=== PATIENT | female | born 1970 | race Caucasian/White ===

== ENCOUNTER → 2022-02-12 13:52 | Outpatient (CLI) | payer OTHER, SELFPAY ==
--- NOTE | ~2022-02-12 | MR_ITS ---
EXAMINATION: MR knee LT wo con DATE: 02/12/2022 14:40 INDICATION: Anterior left knee pain, difficulty bending knee since a fall off a ladder onto the knee, 2 weeks ago. TECHNIQUE: Magnetic resonance imaging (MRI) of the left knee was performed without intravenous contra st. Sequences included axial PD-weighted FS FSE, coronal PD-weighted FSE and PD-weighted FS FSE, sagi ttal PD-weighted FSE, and sagittal T2-weighted FS FSE. COMPARISON: None. FINDINGS: Medial compartment: Meniscus intact. Moderate diffuse cartilage thinning. Mild osteophytosis. Lateral compartment: Meniscus intact. Moderate diffuse cartilage thinning. Mild osteophytosis. Patellofemoral compartment: Full-thickness cartilage fissures along the medial facet, with mild subchondral edema. Retinacula int act. Ligaments and tendons: LCL, PCL, and MCL are intact. Remaining flexor and extensor tendons are intact. Fluid: Small volume joint fluid. Osseous/other: Irregular large focus of bone marrow edema involving the tibial tubercle and the anterior portion of the mid proximal tibia nonaggressive appearing 12 mm adjacent marrow cyst. IMPRESSION: 1. Bone marrow contusion involving the proximal tibia and tibial tuberosity. 2. Small volume knee joint effusion. 3. Osteoarthritic changes in the medial and lateral compartments. 4. No internal derangement. Reviewed, dictated and finalized at location K. ITALITY RECRUITER
== END ==
PROVIDERS: PCP Nurse Practitioner Family; Visit Provider Orthopaedic Surgery
DX: M25.462 Effusion, left knee (principal); M17.12 Unilateral primary osteoarthritis, left knee
CPT/HCPCS: 73721

== ENCOUNTER 2022-05-22 07:17 | Outpatient (CLI) | payer OTHER, SELFPAY ==
--- NOTE | ~2022-05-22 | MR_ITS ---
EXAMINATION: MR knee LT wo con DATE: 05/22/2022 08:37 INDICATION: Chronic left knee pain. TECHNIQUE: Magnetic resonance imaging (MRI) of the left knee was performed without intravenous contra st. COMPARISON: Left knee MRI 02/12/2022 FINDINGS: Medial compartment: Medial meniscus is normal. There is shallow partial-thickness cartilage loss of femoral condyle and t ibial condyle. There is subchondral edema-like marrow signal intensity in femoral condyle medially. Lateral compartment: Lateral meniscus is normal. Femoral cartilage is normal. There is partial-thickness cartilage loss of tibial condyle medially. Patellofemoral compartment: There is shallow partial-thickness cartilage loss of patellar medial facet and median ridge. There is deep increased T2-weighted signal intensity in the cartilage of patellar medial facet with mild subc hondral edema-like marrow signal intensity. There is shallow partial-thickness cartilage loss of troc hlea. Ligaments and tendons: The anterior and posterior cruciate ligaments are normal. Medial collateral ligament and lateral rakel ateral ligament complex are normal. There is mild patellar tendinopathy. There is focal fatty atrophy in soleus muscle. Fluid: There is a small knee joint effusion. Osseous/other: There is increased T2-weighted signal intensity in proximal tibia centered at the tibial tubercle. Th ere is increased T2-weighted signal intensity in the adjacent anterior musculature. There is a 5 mm n onaggressive lytic lesion in proximal tibial metadiaphysis with decrease in size from 12 mm, likely b enign. IMPRESSION: 1. Mild tricompartmental chondrosis. 2. Small knee joint effusion. 3. Persistent increased T2-weighted signal intensity involving proximal tibia centered at the tibial tubercle and in the adjacent musculature, consistent with contusion. Reviewed, dictated and finalized at location A. INSTRUCTOR IMPRESSION: 1. Mild tricompartmental chondrosis. 2. Small knee joint effusion. 3. Persistent increased T2-weighted signal intensity involving proximal tibia c entered at the tibial tubercle and in the adjacent musculature, consistent with contusion.
== END 2022-05-22 07:18 ==
PROVIDERS: PCP Nurse Practitioner Family; Visit Provider Orthopaedic Surgery
DX: M25.462 Effusion, left knee (principal)
CPT/HCPCS: 73721